=== PATIENT | female | born 1955 | race Caucasian/White ===

== ENCOUNTER → 2021-01-12 | Outpatient (CLI) | payer MEDICARE, SELFPAY ==
--- NOTE | 2021-01-11 | CYSPIN_PTH ---
PATIENT: SRINIVAS LEACH LOC: [facility] U#:[id number] AGE/SX: 65/F ROOM: RE01/12/[address]: Dr. Gaby Hinton MD : 1955 BED: DIS: 01/12/2021 SPEC #: [id number] RECD: 01/12/21 07:39 STATUS: RACHEL MOSLEY #: [id number] KAYA: 01/11/21 00:[address]: Gaby Hinton DEPT: CYTOLOGY RECD BY: Porsha Casey Tissues: Urine Procedures: Pap Stain (control) Special Stain Group II Cytospin Fluid HEADER OPERATION: Not noted PRE-OP DIAGNOSIS: Gross hematuria TISSUE SUBMITTED: Urine for cytology DIAGNOSIS CYTOLOGY Urine for cytology (cytospin): Atypical urothelial cells noted. See comment. MARTÍN:charo 01/12/2021 COMMENT Numerous red blood cells are noted. Organisms consistent with bacteria are also noted. Clinical correlation and appropriate follow up are necessary. Case has been reviewed in consultation with Dr. Hou who concurs with the above diagnosis. IDC:AM CYTOLOGY STUDY Slides are reviewed. CYTOLOGY GROSS Received is 45 ml of yellow cloudy fluid labeled with the patient's name and and designated per the requisition as urine. Submitted for cytology preparation. / charo 01/11/21 TC:5 [facility]: [id number]
[2021-01-11 16:00] LABS: Cytology, Body Fluid / CSF SEE PATHOLOGY REPORT
== END | disposition home or self-care (01) ==
LOC: LABSPEC 12:06
PROVIDERS: Visit Provider Urology
DX: R31.0 Gross hematuria (principal)
CPT/HCPCS: 88108; 88313

== ENCOUNTER → 2021-01-19 06:51 | Outpatient (CLI) | payer BC, SELFPAY | PROVIDERS: Visit Provider Urology | DX: R31.9 Hematuria, unspecified (principal) ==

== ENCOUNTER 2021-03-25 12:56 | Day surgery (SDC) | payer MEDICARE, SELFPAY ==
[2021-03-25 13:33] VITALS: BP 140/96; PULSE 73; RESP 16; TEMP 36.8; O2SAT 100; BMI 22.6
[2021-03-25] MEDS: Lactated Ringers 1,000 ML 15 ML IV ×2 (13:48→15:45)
--- NOTE | 2021-03-25 15:01 | PCM.DC ---
Discharge Instructions Diet Discharge Diet: No restrictions Activity Discharge Activity: Return to Normal Activity, May Drive (Except when taking narcotics), May Shower and May Take a Tub Bath May resume sexual activity in: No Restrictions Dressing / Incision Call your doctor if you observe: Fever of 101 or Higher, Inability to urinate, Inability to have a bowel movement and Uncontrolled pain Follow Up Care Please Follow Up With: Gaby Hinton MD When: Call the office to be seen next week for stent removal Test Results: Test results from this visit will be discussed in further detail at your follow-up appointment, if applicable. Discharge Plan Admission Attending Provider: Gaby Hinton Primary Care Provider: Ghanshyam Montenegro Discharge Orders/Prescriptions Prescriptions: New phenazopyridine [Pyridium] 200 MG tablet 200 mg PO TID PRN PRN (Reason: Bladder Spasms) 7 Days Qty: 30 RF: 0 oxycodone-acetaminophen [oxycodone-acetaminophen] 1 TABLET tablet 2 tab PO Q8H PRN PRN (Reason: Pain) 7 Days Qty: 20 RF: 0 cephalexin [cephalexin] 500 MG capsule 500 mg PO Q12 3 Days Qty: 6 RF: 0 ondansetron HCl [ondansetron HCl] 8 MG tablet 8 mg PO Q8H PRN PRN (Reason: Nausea) 7 Days Qty: 20 RF: 0 Continued levothyroxine [Synthroid] 88 MCG tablet 88 mcg PO DAILY RF: 0 Discontinued tamsulosin 0.4 mg capsule 0.4 mg PO DAILY RF: 0 Referrals / Follow Up: Ghanshyam Montenegro DO [Primary Care Provider] - Disposition Disposition (needs filled in before D/C Order can be placed): Home, Self Care
--- NOTE | 2021-03-25 15:05 | PCM.OPRPT ---
Problems Associated Problem List Diagnoses (1) Hydronephrosis, right: (2) Right ureteral calculus: Report of Operation Date of Procedure: 03/25/21 Pre-Operative Diagnosis: Right ureteral calculus with hydronephrosis Post-Operative Diagnosis: Same, Urethral stenosis Surgery/Procedure Performed:: Urethral dilation, cystoscopy, right ureteroscopy, holmium laser lithotripsy, stone basket extraction and right ureteral stent insertion Surgeon: Gaby Hinton Type of Anesthesia: General Specimen's removed: stone fragments Description of Procedure: The patient is a 66-year-old female who was diagnosed with a 6 mm distal ureteral calculus with hydronephrosis and pain. She now presents for definitive surgical intervention. Informed consent was obtained. The patient was taken to the operating room and placed on the operating room table. Anesthesia monitored the head, neck, airway, IV access and vital signs throughout the case. Once anesthesia was appropriately administered, the patient was placed into dorsolithotomy position was prepped and draped in usual sterile fashion. The cystoscope was attempted to be inserted through the urethra however the meatus was too small. It was subsequently dilated with urethral stones starting at [address] up to 24 Icelandic without difficulty. The cystoscope was then inserted through the urethra under direct visualization into the urinary bladder. Other than edema at the right ureteral orifice the bladder mucosa was normal. The right ureter was intubated with an 0.035 Glidewire which was seen in the renal pelvis on fluoroscopy. Using a semirigid ureteroscope, the stone was identified in the very distal aspect of the ureter. The stone was lasered into small pieces using the holmium laser fiber. The pieces were stone basket extracted. Using the safety wire, at the conclusion of extraction, a 6 Icelandic 24 cm JJ stent was inserted over the wire with good curling in the renal pelvis as well as the urinary bladder. The patient's bladder was then emptied and the case was terminated. The patient was awakened and taken to the recovery room in good condition. There were no complications during this procedure. Grafts/Implants Used: 6x24cm JJ stent Complications None Admit VTE Documentation VTE Present on Admission: Yes VTE Mechan Device Prophylaxis: SCD's VTE Pharm Prophylaxis ordered?: No Reason prophylaxis not ordered:: Treatment Not Indicated
[2021-03-25 16:14] VITALS: BP 117/68; BP 140/96; PULSE 80; RESP 16; TEMP 36.5; O2SAT 98
[2021-03-25 16:30] VITALS: BP 128/71; BP 140/96; PULSE 69; RESP 16; O2SAT 100
[2021-03-25 16:45] VITALS: BP 121/71; BP 140/96; PULSE 67; RESP 16; TEMP 36.3; O2SAT 100
[2021-03-25 17:10] VITALS: BP 140/96
--- NOTE | 2021-03-26 | CALC_PTH ---
PATIENT: SRINIVAS LEACH LOC: [facility] [place] U#:[id number] AGE/SX: 66/F ROOM: RE03/25/[address]: Dr. Gaby Hinton MD : 1955 BED: DIS: 03/25/2021 SPEC #: [id number] RECD: 03/26/21 11:30 STATUS: RACHEL DIMITRI #: [id number] KAYA: 03/26/21 00:[address]: Gaby Hinton DEPT: SURGICAL PATHOLOGY RECD BY: Erik Madrigal ENTERED: 03/26/21 11:30 SP TYPE: Calculi OTHR DR: Dr. Ghanshyam Montenegro DO Tissues: CALCULI Procedures: Surgery Specimen Level I HEADER OPERATION: Cysto, ureteroscopy, ureteral dilation, laser lithotripsy PRE-OP DIAGNOSIS: Right hydronephrosis, right ureteral calculus TISSUE SUBMITTED: Calculi for analysis right GROSS DIAGNOSIS Fragments of stone, clinically right ureteral calculi. SJ:charo 03/29/2021 COMMENT The calculus is submitted in its entirety for chemical stone analysis. The results from this study will be reported separately. GROSS DESCRIPTION Received without fixative labeled with the patient's name and designated calculi. The specimen consists of multiple fragments of cohn-brown stone measuring in aggregate 0.4 x 0.4 x 0.1 cm. The entire specimen is submitted for stone analysis. / MARTÍN:charo 03/26/2021 CPT: 95251
[2021-04-01 09:01] LABS: Source NOT PROVIDED
== END 2021-03-25 23:59 | disposition home or self-care (01) ==
LOC: SDC 12:56 → AC 12:56
PROVIDERS: PCP Preventive Medicine Occupational Medicine; Referring Provider Urology; Visit Provider Urology
PROC: 0TJ98ZZ Inspection of Ureter, Via Natural or Artificial Opening Endoscopic (ICD-10-PCS; CPT 52352; principal; 2021-03-25 14:30)
DX: N13.2 Hydronephrosis with renal and ureteral calculous obstruction (principal); K58.9 Irritable bowel syndrome, unspecified; E03.9 Hypothyroidism, unspecified; Z87.19 Personal history of other diseases of the digestive system; Z79.899 Other long term (current) drug therapy
CPT/HCPCS: 52356; 00873; 76000; 82360; 87426; 88300; C9803; J7120; C2617; J2405

== ENCOUNTER → 2022-05-04 | Outpatient (CLI) | payer MEDICARE, SELFPAY ==
--- NOTE | 2022-05-04 09:52 | RAD_ITS ---
STUDY: X-RAY - ABDOMEN/PELVIS REASON FOR EXAM: Female, 67 years old. Flank pain TECHNIQUE: Two AP supine views of the abdomen and pelvis. COMPARISON: None. FINDINGS: Normal visualized lung bases. There is an unremarkable bowel gas pattern. There is no demonstrated free abdominal air. The visualized liver, spleen and kidneys are grossly normal in size and morphology. Calcific densities noted over the right renal shadow. No calcifications noted over the left renal shadow or along the expected course of either ureter. However, one could be obscured by overlying bowel gas and stool. There are calcified phleboliths in the pelvis. Normal visualized osseous structures. RAD/Abdomen Single View IMPRESSION: Likely right nephrolithiasis Retained stool Electronically Signed: Hussein Miller MD at 10:19 EST ,
== END | disposition home or self-care (01) ==
LOC: MTRAD 09:50
PROVIDERS: PCP Preventive Medicine Occupational Medicine; Referring Provider Urology; Visit Provider Urology
DX: N20.0 Calculus of kidney (principal)
CPT/HCPCS: 74018